=== PATIENT | male | born 1980 | race Native Hawaiian/Other Pacific Islander ===

== ENCOUNTER → 2017-03-18 09:25 | Outpatient (CLI) | payer OTHER | END | disposition home or self-care (01) | LOC: AMB 09:25 | DX: Z04.1 Encounter for examination and observation following transport accident (principal) ==

== ENCOUNTER 2017-03-20 10:34 | Emergency (ER) | payer OTHER ==
[~2017-03-20] VITALS: Ht 177.8 cm; Wt 93.9 kg
[2017-03-20 11:46] LABS: PLATELET COUNT 234 K/uL (142-355)
== END 2017-03-20 13:19 | disposition home or self-care (01) ==
LOC: ED 10:34
DX: M79.1 Myalgia (principal); M47.897 Other spondylosis, lumbosacral region; V49.60XA Unspecified car occupant injured in collision with unspecified motor vehicles in traffic accident, initial encounter; Y93.89 Activity, other specified; Y92.89 Other specified places as the place of occurrence of the external cause; Y99.8 Other external cause status
CPT/HCPCS: 36415; 85027; 96372; 99283; J1885

== ENCOUNTER 2017-03-29 22:50 | Outpatient (CLI) | payer OTHER | END 2017-03-29 22:55 | disposition short-term general hospital (02) | LOC: AMB 22:50 | DX: G40.89 Other seizures (principal); W18.39XA Other fall on same level, initial encounter; Y92.488 Other paved roadways as the place of occurrence of the external cause | CPT/HCPCS: A0425; A0427 ==

== ENCOUNTER 2017-03-29 22:59 | Emergency (ER) | payer OTHER ==
[~2017-03-29] VITALS: Ht 177.8 cm; Wt 94.3 kg
[2017-03-30 00:03] LABS: PLATELET COUNT 314 K/uL (142-355)
[2017-03-30 00:06] LABS: POTASSIUM 2.7 mmol/L (3.6-5.2); SODIUM 136 mmol/L (136-145)
== END 2017-03-30 01:15 | disposition home or self-care (01) ==
LOC: ED 22:59
PROVIDERS: Specialist
DX: R55 Syncope and collapse (principal)
CPT/HCPCS: 80053; 80307; 81000; 83735; 84100; 85027; 99283; G0479